=== PATIENT | male | born 2000 | race Caucasian/White ===

== ENCOUNTER 2021-01-07 17:07 | Inpatient (IN) | payer OTHER ==
[~2021-01-07] VITALS: Ht 177.8 cm; Wt 64.9 kg
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
--- NOTE | 2021-01-07 19:41 | NUR ---
EMT AT BEDSIDE FOR EKG
--- NOTE | 2021-01-07 19:52 | NUR ---
COVID SWAB SENT TO LAB
--- NOTE | 2021-01-07 20:20 | NUR ---
CALLED RT TO PLACE PT ON HIGH FLOW
[2021-01-07 20:23] LABS: BASOPHILS # (AUTO) 0.1 K/uL (0.0-0.2); BASOPHILS % (AUTO) 0.8 % (0.0-2.0); EOSINOPHILS % (AUTO) 0.1 % (0.0-6.0); HEMATOCRIT 46 % (39-51); HEMOGLOBIN 15.4 g/dL (13.5-17.5); LYMPHOCYTES # (AUTO) 0.5 K/uL (0.8-4.8); LYMPHOCYTES % (AUTO) 3.7 % (20.0-44.0); MEAN CORPUSCULAR HGB CONC 33 g/dl (31.0-36.0); MEAN CORPUSCULAR VOLUME 88 fL (80-96); NEUTROPHILS # (AUTO) 13.1 K/uL (1.8-8.9); NEUTROPHILS % (AUTO) 88.4 % (43.0-81.0); PLATELET COUNT (AUTO) 230 K/uL (150-450); RED BLOOD CELL COUNT(AUTO) 5.23 MIL/uL (4.5-6.0); WHITE BLOOD COUNT (AUTO) 14.8 K/uL (4.3-11.0)
[2021-01-07 20:45] LABS: CALCIUM, SERUM 9.4 mg/dL (8.5-10.1); CREATININE 1.2 mg/dL (0.6-1.3)
--- NOTE | 2021-01-07 21:20 | NUR ---
MRSA SWAB COLLECTED AND SENT TO LAB. PATIENT'S BELONGINGS LIST DONE.
[2021-01-07] MEDS ORDERED: IV NS 0.9% 1,000 ML BAG IV ONE (21:30)
[2021-01-07] MEDS ORDERED: MAG HYDROX/AL HYDROX/SIMETH 30 ML UDC PO PRN (23:30)
[2021-01-07] MEDS ORDERED: ACETAMINOPHEN 325 MG TABLET PO PRN (23:30)
[2021-01-07] MEDS ORDERED: Z GUARD REMEDY 2 OZ OINT TP PRN (23:30)
[2021-01-07] MEDS ORDERED: MAGNESIUM HYDROXIDE 30 ML UDC PO PRN (23:30)
[2021-01-07] MEDS ORDERED: ONDANSETRON HCL/PF 4 MG/2 ML VIAL IVP PRN (23:30)
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
[2021-01-08 01:00] VITALS: BP 123/64
--- NOTE | 2021-01-08 01:08 | NUR ---
PT TRANSPORTED TO UNIT ON GURNEY WITH EMT AND RN AT BEDSIDE WITH ACLS PROTOCOL. NAD DURING TRANSPORT. PT AMBULATED FROM GURNEY TO BED ON STEADY GAIT.
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
--- NOTE | 2021-01-08 06:00 | NUR ---
RN NOTES Patient woke up and and slightly anxious, patient can't remember who brought him here in the hospital. Asked patient 's mom's phone number and manage to talked to him mother , per mother they already arrived form [place] and they will come here in the hospital. Asked patient some important information like if he took drugs before coming here , pt stated " it's bad to do drugs". gave something to drink and we'll wait for his parent.
[2021-01-08 06:17] LABS: BASOPHILS # (AUTO) 0.1 K/uL (0.0-0.2); BASOPHILS % (AUTO) 0.6 % (0.0-2.0); EOSINOPHILS % (AUTO) 0.9 % (0.0-6.0); HEMATOCRIT 40 % (39-51); HEMOGLOBIN 14.1 g/dL (13.5-17.5); LYMPHOCYTES # (AUTO) 1.8 K/uL (0.8-4.8); LYMPHOCYTES % (AUTO) 17.4 % (20.0-44.0); MEAN CORPUSCULAR HGB CONC 36 g/dl (31.0-36.0); MEAN CORPUSCULAR VOLUME 87 fL (80-96); MONOCYTES # (AUTO) 1.1 K/uL (0.1-1.30); MONOCYTES % (AUTO) 11.3 % (2.0-12.0); NEUTROPHILS % (AUTO) 69.8 % (43.0-81.0); PLATELET COUNT (AUTO) 180 K/uL (150-450); RED BLOOD CELL COUNT(AUTO) 4.56 MIL/uL (4.5-6.0); WHITE BLOOD COUNT (AUTO) 10.1 K/uL (4.3-11.0)
--- NOTE | 2021-01-08 06:26 | NUR ---
RN CLOSING NOTES PT. IN BED AWAKE A/O X 3. WITH PERIODS OF CONFUSION. REALITY REORIENTATION PROVIDED. NO C/O PAIN AND DISCOMFORT AT THIS TIME. PT. ON ROOM AIR, MARCUS. WELL WITH 02 SAT OF 99- 100%. IN NO APARRENT RESPIRATORY DISTRESS NOTED. LUNGS ARE CLEAR ON AUSCULTATION. PT. WITH IV RAC G# 20 S/L, INTACT AND PATENT. SAFETY MEASURES INITIATED. BED PLACED IN LOWEST POSITION WITH SR X2 UP. CALL LIGHT AND BEDSIDE TABLE WITHIN EASY REACH. WILL ENDORSED PATIENT TO DAY SHIFT NURSE FOR JUAN
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
[2021-01-08 06:58] LABS: ALBUMIN 4.1 g/dL (3.4-5.0); BILIRUBIN,TOTAL 2.5 mg/dL (0.2-1.0); CALCIUM, SERUM 8.8 mg/dL (8.5-10.1); CREATININE 1.1 mg/dL (0.6-1.3); MAGNESIUM 2.3 mg/dL (1.8-2.4); PHOSPHORUS 4.6 mg/dL (2.5-4.9)
--- NOTE | 2021-01-08 07:30 | NUR ---
RN OPENING NOTES; RECEIVED PATIENT IN BED AWAKE. A/O X3. ABLE TO MAKE NEEDS KNOWN. NO PAIN NOTED. NO RESPIRATORY DISTRESS NOTED. EVEN AND UNLABORED BREATHS. IV ON THE RAC # 20 INTACT AND PATENT. RIGHT HEAD REDNESS, LEFT HEAD REDNESS, RIGHT CHEEK ABRASION, RIGHT ELBOW REDNESS, LEFT ELBOW REDNESS AND RIGHT WRIST BRUISE NOTED. SAFETY PRECAUTION IN PLACE. BED LOWEST POSITION AND LOCKED, CALL LIGHT AND TABLE WITHIN REACH. WILL CONTINUE TO MONITOR.
[2021-01-08] MEDS: PANTOPRAZOLE 40 MG TABLET.DR PO SCH (07:52)
[2021-01-08 08:00] VITALS: BP 108/65
--- NOTE | 2021-01-08 09:00 | NUR ---
RN NOTES URINE SPECIMEN AVAILABLE INFORM LAB DEPARTMENT FOR RN CARDIAC.
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
[2021-01-08] MEDS ORDERED: LORAZEPAM 0.5 MG TABLET PO ONE (12:00)
[2021-01-08] MEDS ORDERED: HYDROCODONE/APAP 5/325MG TABLET PO PRN (12:00)
--- NOTE | 2021-01-08 14:12 | NUR ---
RN NOTES RE-INFORMED LAB REGARDING URINE SPECIMEN THAT HASN'T BEEN PICKED UP. SPOKE TO NAVI, PER NAVI SHE WILL SEND SOMEONE TO PICK IT UP.
[2021-01-08 16:00] VITALS: BP 119/59
[2021-01-08] MEDS ORDERED: LORAZEPAM 0.5 MG TABLET PO PRN (17:00)
--- NOTE | 2021-01-08 18:30 | NUR ---
RN CLOSING NOTES; PATIENT IN BED AWAKE. A/O X3. ABLE TO MAKE NEEDS KNOWN. NO PAIN NOTED. NO RESPIRATORY DISTRESS NOTED. EVEN AND UNLABORED BREATHS. IV ON THE RAC # 20 INTACT AND PATENT. RIGHT HEAD REDNESS, LEFT HEAD REDNESS, RIGHT CHEEK ABRASION, RIGHT ELBOW REDNESS, LEFT ELBOW REDNESS AND RIGHT WRIST BRUISE NOTED. DUE MED GIVEN ORDERED.SAFETY PRECAUTION IN PLACE. BED LOWEST POSITION AND LOCKED, CALL LIGHT AND TABLE WITHIN REACH. WILL ENDORSE ONCOMING SHIFT NURSE FOR CONTINUOUS OF THE CARE.
--- NOTE | 2021-01-08 19:30 | NUR ---
RN OPENING NOTES; RECEIVED PATIENT IN BED AWAKE. A/O X3. ABLE TO MAKE NEEDS KNOWN. NO PAIN OR DISCOMFORT NOTED AT THIS TIME. NO RESPIRATORY DISTRESS NOTED. EVEN AND UNLABORED. PT. WITH IV ON THE RAC # 20 INTACT AND PATENT. PATIENT WITH MULTIPLE SKIN ISSUES, ADVISE PATIENT NOT TO TOUCH OR SCRATCH THE AFFECTED AREAS. KEPT PT. CLEAN AND DRY AT ALL TIMES. SAFETY PRECAUTION IN PLACE. BED IN LOWEST POSITION AND LOCKED, CALL LIGHT AND TABLE WITHIN REACH. WILL CONTINUE TO MONITOR.
[2021-01-08 20:12] VITALS: BP 117/52
--- NOTE | 2021-01-08 22:37 | NUR ---
RN NOTES Spoke to [facility] [facility]-NATASHA and got an order of psych consult, order noted and carried out
--- NOTE | 2021-01-09 06:23 | NUR ---
RN CLOSING NOTES PATIENT IN BED AWAKE. A/O X3. ABLE TO MAKE NEEDS KNOWN. NO PAIN NOTED. NO RESPIRATORY DISTRESS NOTED. EVEN AND UNLABORED BREATHS. ON O2 AT 2LPM/N.C, MARCUS.WELL. IV ON THE RAC # 20 INTACT AND PATENT. SAFETY PRECAUTION IN PLACE. BED LOWEST POSITION AND LOCKED, CALL LIGHT AND TABLE WITHIN REACH. WILL ENDORSE ONCOMING SHIFT NURSE FOR CONTINUOUS OF THE CARE.
[2021-01-09] MEDS: PANTOPRAZOLE 40 MG TABLET.DR PO SCH (07:41)
[2021-01-09 07:58] LABS: BASOPHILS % (AUTO) 0.7 % (0.0-2.0); HEMATOCRIT 40 % (39-51); HEMOGLOBIN 13.7 g/dL (13.5-17.5); LYMPHOCYTES # (AUTO) 1.2 K/uL (0.8-4.8); LYMPHOCYTES % (AUTO) 23.7 % (20.0-44.0); MEAN CORPUSCULAR HGB CONC 34 g/dl (31.0-36.0); MEAN CORPUSCULAR VOLUME 87 fL (80-96); MONOCYTES # (AUTO) 0.8 K/uL (0.1-1.30); MONOCYTES % (AUTO) 14.5 % (2.0-12.0); NEUTROPHILS % (AUTO) 58.1 % (43.0-81.0); PLATELET COUNT (AUTO) 173 K/uL (150-450); RED BLOOD CELL COUNT(AUTO) 4.61 MIL/uL (4.5-6.0); WHITE BLOOD COUNT (AUTO) 5.2 K/uL (4.3-11.0)
[2021-01-09 08:00] VITALS: BP 114/64
[2021-01-09 08:53] LABS: CALCIUM, SERUM 8.7 mg/dL (8.5-10.1); MAGNESIUM 1.9 mg/dL (1.8-2.4); PHOSPHORUS 2.7 mg/dL (2.5-4.9); POTASSIUM 3.7 mmol/L (3.5-5.1)
[2021-01-09] MEDS ORDERED: LORA-259 PO (10:20)
[2021-01-09] MEDS ORDERED: ARIP5TAB10 PO (12:39)
[2021-01-09] MEDS ORDERED: ARIPIPRAZOLE 5 MG TABLET PO SCH (13:00)
--- NOTE | 2021-01-09 13:40 | NUR ---
FRUIT COORDINATOR NOTES DISCHARGED PATIENT IN STABLE CONDITION. VITAL SIGNS WITHIN NORMAL LIMITS. DISCHARGE INSTRUCTIONS GIVEN TO PATIENT, PARENTS PRESENT UPON DISCUSSION. INSTRUCTED ON FOLLOW UP WITH PCP AND PSYCHIATRIST, PATIENT AND PARENTS VERBALIZED UNDERSTANDING OF INSTRUCTIONS GIVEN. IV ACCESS REMOVED, COVERED WITH GAUZE, NO BLEEDING NOTED. ARMBAND REMOVED. BELONGINGS ACCOUNTED AND SIGNED FOR. WHEELED PATIENT DOWN TO LOBBY ACCOMPANIED BY WILFREDO WILSON). LEFT UNIT IN STABLE CONDITION. MD AND CHARGE NURSE AWARE OF DISCHARGE. Addendum: 01/09/21 at 1351 by RAMIRO BROCK RN PRESCRIPTION HANDED TO PATIENT'S MOTHER (SOPHIE)
[2021-01-10] MEDS ORDERED: ARIPIPRAZOLE 5 MG TABLET PO SCH (09:00)
== END 2021-01-09 13:30 | disposition home or self-care (01) | DRG 199 ==
LOC: EDBD 17:10 → ER 17:10 → TELE 01-08 00:14 → MED 01-08 06:20
PROVIDERS: ADMIT Hospitalist; ATTEND Nurse Practitioner Acute Care
DX: T79.7XXA Traumatic subcutaneous emphysema, initial encounter (principal); G92.8 Other toxic encephalopathy; S27.0XXA Traumatic pneumothorax, initial encounter; S09.90XA Unspecified injury of head, initial encounter; S60.222A Contusion of left hand, initial encounter; S60.221A Contusion of right hand, initial encounter; Y04.2XXA Assault by strike against or bumped into by another person, initial encounter; F39 Unspecified mood [affective] disorder; F41.9 Anxiety disorder, unspecified; Z20.822 Contact with and (suspected) exposure to COVID-19; Y93.9 Activity, unspecified; Y92.89 Other specified places as the place of occurrence of the external cause; F19.188 Other psychoactive substance abuse with other psychoactive substance-induced disorder
CPT/HCPCS: 36415; 70450-TC; 70490-TC; 71045-TC; 71250-TC; 72125-TC; 73130-TC; 80048-TC; 80053-TC; 83735-TC; 84100-TC; 84484-TC; 85025-TC; 85730-TC; 87081-TC; C9803; G0378; G0480; J7030